=== PATIENT | male | born 1975 | race Caucasian/White ===

== ENCOUNTER 2020-10-30 08:46 | Emergency (ER) | payer OTHER ==
[~2020-10-30] VITALS: Ht 180.3 cm; Wt 83.9 kg
[~2020-10-30 08:46] MED LIST: CRUTCH4 USE; NAPR500 PO; RXTRAM50 PO; TRAM50 PO
[2020-10-30 09:08] LABS: BASOPHILS ABSOLUTE AUTO 0.03 K/mm3 (0.00-0.23); BASOPHILS PERCENT AUTO 1 % (0-2); EOSINOPHILS ABSOLUTE AUTO 0.18 K/mm3 (0.00-0.68); EOSINOPHILS PERCENT AUTO 3 % (0-6); Hematocrit 45.2 % (37.0-53.0); Hemoglobin 14.9 g/dL (13.5-17.5); IMMATURE GRAN ABSOLUTE AUTO 0.01 K/mm3 (0.00-0.10); IMMATURE GRAN PERCENT AUTO 0 % (0-1); LYMPHOCYTES ABSOLUTE AUTO 2.29 K/mm3 (0.84-5.20); LYMPHOCYTES PERCENT AUTO 38 % (21-46); MONOCYTES ABSOLUTE AUTO 0.58 K/mm3 (0.16-1.47); MONOCYTES PERCENT AUTO 10 % (4-13); Mean Corpuscular HGB 29.9 pg (26.0-34.0); Mean Corpuscular Volume 91 fL (80-100); Mean Platelet Volume 9.3 fL (9.1-12.4); NEUTROPHILS PERCENT AUTO 48 % (41-73); Platelet Count 228 K/mm3 (150-400); RDW Coefficient Variation 12.2 % (11.7-14.2); RDW Standard Deviation 40.4 fL (35.1-46.3); Red Blood Cell Count 4.99 M/mm3 (4.30-5.90); White Blood Cell Count 5.99 K/mm3 (4.00-11.30)
[2020-10-30 09:29] LABS: Alanine Aminotransfer (ALT/SGP 62 U/L (12-78); Albumin, Blood 3.9 g/dL (3.4-5.0); Albumin/Globulin Ratio 1.1 (0.8-1.8); Alk Phos 42 U/L (50-136); Anion Gap 5 mmol/L (6-16); Aspartate Aminotrans (AST/SGOT 38 U/L (12-37); Bilirubin, Total 0.4 mg/dL (0.1-1.0); Blood Urea Nitrogen 28 mg/dL (8-24); Bun/Creatinine Ratio 32.3 (12.0-20.0); CO2, Blood 28 mmol/L (21-32); Chloride, Blood 108 mmol/L (98-108); Creatinine, Blood 0.87 mg/dL (0.60-1.20); Globulin, Blood 3.5 g/dL (2.2-4.0); Glomerular Filtration Rate >60 (60-); Glucose, Blood 110 mg/dL (70-99); Sodium, Blood 141 mmol/L (136-145); Total Protein, Blood 7.4 g/dL (6.4-8.2); Troponin I <0.015 ng/mL (0.000-0.040)
== END 2020-10-30 10:10 | disposition home or self-care (01) ==
LOC: ER 08:46
PROVIDERS: Physician Assistant
DX: R07.81 Pleurodynia (principal)
CPT/HCPCS: 36415; 71046; 80053; 84484; 85025; 85379; 93005; 93010; 99284-25

== ENCOUNTER 2023-09-20 19:27 | Observation (INO) | payer OTHER ==
[~2023-09-20] VITALS: Ht 172.7 cm; Wt 132.0 kg
[2023-09-20 20:09] LABS: BASOPHILS ABSOLUTE AUTO 0.04 K/mm3 (0.00-0.23); BASOPHILS PERCENT AUTO 0 % (0-2); EOSINOPHILS ABSOLUTE AUTO 0.23 K/mm3 (0.00-0.68); EOSINOPHILS PERCENT AUTO 3 % (0-6); Hematocrit 48.2 % (37.0-53.0); Hemoglobin 16.2 g/dL (13.5-17.5); IMMATURE GRAN ABSOLUTE AUTO 0.02 K/mm3 (0.00-0.10); IMMATURE GRAN PERCENT AUTO 0 % (0-1); LYMPHOCYTES ABSOLUTE AUTO 4.05 K/mm3 (0.84-5.20); LYMPHOCYTES PERCENT AUTO 45 % (21-46); MONOCYTES ABSOLUTE AUTO 0.97 K/mm3 (0.16-1.47); MONOCYTES PERCENT AUTO 11 % (4-13); Mean Corpuscular HGB 29.7 pg (26.0-34.0); Mean Corpuscular HGB Conc 33.6 g/dL (31.5-36.5); Mean Corpuscular Volume 88 fL (80-100); Mean Platelet Volume 10.2 fL (9.1-12.4); NEUTROPHILS ABSOLUTE AUTO 3.72 K/mm3 (1.96-9.15); NEUTROPHILS PERCENT AUTO 41 % (41-73); Platelet Count 230 K/mm3 (150-400); RDW Coefficient Variation 12.6 % (11.7-14.2); RDW Standard Deviation 40.6 fL (35.1-46.3); Red Blood Cell Count 5.46 M/mm3 (4.30-5.90); White Blood Cell Count 9.03 K/mm3 (4.00-11.30)
[2023-09-20 20:24] LABS: Albumin, Blood 4.1 g/dL (3.4-5.0); Albumin/Globulin Ratio 1.1 (0.8-1.8); Bilirubin, Total 0.4 mg/dL (0.1-1.0); Bun/Creatinine Ratio 21.1 (12.0-20.0); Calcium, Blood 9.7 mg/dL (8.5-10.1); Creatinine, Blood 0.9 mg/dL (0.60-1.20); Globulin, Blood 3.9 g/dL (2.2-4.0); Potassium, Blood 4.2 mmol/L (3.5-5.5)
[2023-09-21] VITALS (15 sets, daily range): BP systolic 125–163; BP diastolic 70–93
[2023-09-21] MEDS ORDERED: EMGALITY S120 MG/1 M SC (03:16)
[2023-09-21] MEDS ORDERED: RIZATRIPTAN10 MG SL (03:18)
--- NOTE | 2023-09-21 07:42 | NUR ---
PT VSS SINCE ARRIVING TO FLOOR. PT MED FOR PAIN AND NAUSEA X1 W/REP RELIEF. PT NPO PEDNING SURGERY PLANNING. IVF CONT PER ORDERS.
--- NOTE | 2023-09-21 12:20 | NUR ---
POST OP ARRIVAL TO SURGICAL UNIT ARRIVES IN [facility] & TRANSFERS SELF TO BED w/ SBA. DENIES DIZZINESS OR LIGHTHEADEDNESS. PLEASANT. DENEIS N/V. CLEAR LQ's & CRACKERS OFFERED. LUNGS CLEAR ON 3L NC. WILL PLAN TO WEAN O2. ABD SOFT w/ LAP SITES x 4 HORIZONAL COVERED w/ WOUND GLUE. DENIES PAIN. SPOUSE AT BEDSIDE, ATTENTIVE & LOVING.
[2023-09-21] MEDS ORDERED: OXYC5 PO (14:58)
[2023-09-21] MEDS ORDERED: AMOCLA875 PO (14:59)
--- NOTE | 2023-09-21 16:23 | NUR ---
DISCHARGE PT PROVIDED WITH WRITTEN AND VERBAL DISCHARGE INSTRUCTIONS, HE AND HIS SPOUSE REPORTED UNDERSTANDING. PT ABLE TO TOLERATE PO, PAIN MANAGED, PT VOIDED AND AMBULATED PRIOR TO DISCHARGE. VSS AT TIME OF DISCHARGE. PT EDUCATED TO USE INCENTIVE SPIROMETER AND IT WAS SENT HOME. PT ASSISTED OUT IN W/C AT 1617.
--- NOTE | 2023-09-21 16:36 | NUR ---
RFA IV REMOVED PRIOR TO DISCHARGE. IV SITE WNL. IV CATHETER INTACT AND SITE WNL.
== END 2023-09-21 16:17 | disposition home or self-care (01) ==
LOC: ER 19:27 → SURS 19:28
PROVIDERS: Student in an Organized Health Care Education/Training Program; Surgery; ADMIT Surgery
PROC: BF121ZZ Fluoroscopy of Gallbladder using Low Osmolar Contrast (ICD-10-PCS; principal; 2023-09-21 09:00)
PROC: 0FB04ZX Excision of Liver, Percutaneous Endoscopic Approach, Diagnostic (ICD-10-PCS; principal; 2023-09-21 09:00)
PROC: 8E0W4CZ Robotic Assisted Procedure of Trunk Region, Percutaneous Endoscopic Approach (ICD-10-PCS; principal; 2023-09-21 09:00)
PROC: 0FT44ZZ Resection of Gallbladder, Percutaneous Endoscopic Approach (ICD-10-PCS; principal; 2023-09-21 09:00)
DX: K80.00 Calculus of gallbladder with acute cholecystitis without obstruction (principal); K82.A1 Gangrene of gallbladder in cholecystitis; K76.89 Other specified diseases of liver; E66.9 Obesity, unspecified; Z68.41 Body mass index [BMI] 40.0-44.9, adult
CPT/HCPCS: 71046; 76705; 80053; 83690; 84484; 85025; 88305; 88307; 93005; 93010; 96374; 96375; 96376; 99285-25; G0378; J0295; J0694; J1100; J1170; J1885; J2405; J2704; J3010; J7120